=== PATIENT | female | born 1945 | race Caucasian/White ===

== ENCOUNTER → 2017-11-18 11:08 | Emergency (ER) | payer MEDICARE ==
--- NOTE | 2017-11-18 11:41 | ED ---
GI/ HPI - HPI Summary HPI Summary: The pt is a 72 y/o female [place] [facility] [place]/o rectal bleeding since today morning. She notes melena (with bright red blood), lower abdominal pain, tinnitus, and a feeling of fogginess secondary to chronic hypertension but denies fever, dizziness, CP, N/V/D, SI/HI. The sx are similar to those she had 4 weeks ago. She takes Vitamin C. - History of Current Complaint Chief Complaint: EDGeneral Time Seen by Provider: 11/18/17 11:25 Stated Complaint: BLOOD IN STOOL Hx Obtained From: Patient Onset/Duration: Started Hours Ago - 11/18/2017 morning, Still Present Pain Intensity: 0 Associated Signs and Symptoms: Positive: Negative - SI/HI, Bright Red Blood w/ Stool, Abdominal Pain, Melena, Other: - Depression. Negative: Dizziness, Nausea , Vomiting, Diarrhea, Fever, Chest Pain - Allergy/Home Medications Allergies/Adverse Reactions: Allergies Allergy/AdvReac Type Severity Reaction Status Date / Time No Known Allergies Allergy Verified 11/18/17 11:23 PMH/Surg Hx/FS Hx/Imm Hx Previously Healthy: No Endocrine/Hematology History: Denies: Hx Diabetes Cardiovascular History: Reports: Hx Hypertension Respiratory History: Denies: Hx Asthma Sensory History: Denies: Hx Deafness - Cancer History Hx Chemotherapy: No Hx Radiation Therapy: No - Surgical History Surgery Procedure, Year, and Place: c-sections Infectious Disease History: No Infectious Disease History: Denies: Traveled Outside the [place] in Last 30 Days - Family History Known Family History: Positive: Cardiac Disease, Hypertension, Diabetes, Other - Colon [place]-father - Social History Occupation: Employed Full-time Lives: With Family Alcohol Use: Daily Alcohol Amount: 2-3 light beers/day Substance Use Type: Reports: Marijuana Substance Use Comment - Amount & Last Used: THC daily-stated use is for depression Smoking Status (MU): Former Smoker Review of Systems Constitutional: Negative - Dizziness, Other - Positive: "fogginess" secondary to HTN Negative: Fever ENT: Other - Positive: Tinnitus Negative: Chest Pain Positive: Abdominal Pain - Lower abd , Other - Positive: Rectal bleeding. Negative: Vomiting, Diarrhea, Nausea Positive: Depressed, Other - Negative: SI/HI All Other Systems Reviewed And Are Negative: Yes Physical Exam - Summary Physical Exam Summary: Constitutional: Well-developed, Well-nourished, Alert. (-) Distressed Skin: Warm, Dry HENT: Normocephalic; Atraumatic Eyes: Conjunctiva normal Neck: Musculoskeletal ROM normal neck. (-) JVD, (-) Stridor, (-) Tracheal deviation Cardio: Rhythm regular, rate normal, Heart sounds normal; Intact distal pulses; The pedal pulses are 2+ and symmetric. Radial pulses are 2+ and symmetric. (-) Murmur Pulmonary/Chest wall: Effort normal. (-) Respiratory distress, (-) Wheezes, (-) Rales Abd: Soft, (-) epigastric tenderness, (-) Distension, (-) Guarding, (-) Rebound Rectal exam: Negative fro jillian blood Musculoskeletal: (-) Edema Lymph: (-) Cervical adenopathy Neuro: Alert, Oriented x3 Psych: Mood and affect Normal Triage Information Reviewed: Yes Vital Signs On Initial Exam: Initial Vitals Temp Pulse Resp BP Pulse Ox 98.3 F 70 18 130/82 100 11/18/17 11:19 11/18/17 11:19 11/18/17 11:19 11/18/17 11:19 11/18/17 11:19 Vital Signs Reviewed: Yes Diagnostics - Vital Signs Vital Signs Temp Pulse Resp BP Pulse Ox 11/18/17 11:19 98.3 F 70 18 130/82 100 - Laboratory Result Diagrams: 11/18/17 16:57 11/18/17 11:59 Lab Statement: Any lab studies that have been ordered have been reviewed, and results considered in the medical decision making process. - EKG 11:42 Cardiac Rate: NL - 65 bpm EKG Rhythm: Sinus Rhythm Re-Evaluation - Re-Evaluation First Eval Re-Evaluation Time: 14:35 Comment: The pt reports a non-bleeding external hemorrhoid. She reports lower abdominal "fullness". GIGU Course/Dx - Course Course Of Treatment: A 72 year-old F presents to the ED with a CC of rectal bleeding since today morning. She notes melena (with bright red blood), lower abdominal pain, tinnitus, and a feeling of fogginess secondary to chronic hypertension but denies fever, dizziness, CP, N/V/D, SI/HI. The sx are similar to those she had 4 weeks ago. A physical exam and EKG are both unremarkable. A rectal exam is negative for jillian blood. I discussed the care of the pt with Dr. Parrish Ruiz MD who agreed tosee the pt in the ED.The pt got evaluated by a road freight brake coupler and hospitalist in the ED. They recommended discharging the pt. who has an upcoming colonoscopy in Nov with possibility of moving it up if needed. Patient will be discharged with a final Dx of rectal bleeding. The pt is agreeable with this plan. Allergies noted. - Diagnoses Provider Diagnoses: Rectal bleeding - Physician Notifications Discussed Care Of Patient With: Sandy Ruiz - Hospitalist Time Discussed With Above Provider: 14:15 Instructed by Provider To: Admit As Inpatient Discharge - Sign-Out/Discharge Documenting (check all that apply): Patient Departure - DC - Discharge Plan Condition: Improved Disposition: HOME Patient Education Materials: Rectal Bleeding (ED) Referrals: Brenda Raza MD [Primary Care Provider] - 2 Days Additional Instructions: RETURN TO THE EMERGENCY DEPARTMENT FOR CHANGING OR WORSENING SYMPTOMS - Attestation Statements Document Initiated by Scribe: Yes Documenting Scribe: Zakiya Singh Provider For Whom Scribe is Documenting (Include Credential): Dr. Arthur Posadas MD Scribe Attestation: Zakiya Boateng , scribed for Dr. Arthur Posadas MD on 11/18/17 at 1754.
[2017-11-18 12:14] LABS: ABS Basophils 0.1 10^3/ul (0-0.2); ABS Eosinophils 0.3 10^3/ul (0-0.6); ABS Lymphocytes 2.7 10^3/ul (1.0-4.8); ABS Monocytes 0.9 10^3/ul (0-0.8); ABS Nucleated RBC 0 10^3/ul; Eosinophil % 2.9 % (0-6); Hematocrit 43 % (35-47); Hemoglobin 14.3 g/dl (12.0-16.0); Lymphocyte % 27.2 % (25-47); Mean Corpuscular HGB Conc 33 g/dl (31-36); Mean Corpuscular Hemoglobin 31 pg (27-31); Mean Corpuscular Volume 92 fL (80-97); Mean Platelet Volume 7.8 um3 (7.4-10.4); Nucleated Red Blood Cells % 0.1; Platelet Count 342 10^3/ul (150-450); Red Blood Count 4.67 10^6/ul (4.00-5.40); Red Cell Distribution Width 13 % (10.5-15)
[2017-11-18 12:32] LABS: EGFR Non-African American 89.9 (>60)
[2017-11-18 15:20] LABS: Urine Appearance Clear; Urine Blood Negative (Negative); Urine Color Straw; Urine Ketones Negative (Negative); Urine Protein Negative (Negative); Urine Specific Gravity 1.002 (1.010-1.030); Urine Urobilinogen Negative (Negative)
[2017-11-18 16:02] VITALS: BP 178/91
[2017-11-18 17:11] LABS: Hematocrit 44 % (35-47); Mean Corpuscular HGB Conc 34 g/dl (31-36); Mean Corpuscular Hemoglobin 32 pg (27-31); Mean Corpuscular Volume 93 fL (80-97); Platelet Count 359 10^3/ul (150-450); Red Cell Distribution Width 13 % (10.5-15); White Blood Count 10.9 10^3/ul (3.5-10.8)
--- NOTE | 2017-11-18 22:23 | CONS ---
CC: Dr. Thompson * CONSULTATION REPORT: DATE OF CONSULT: 11/18/17 - EMERGENCY DEPT PATIENT OF: Dr. Arthur Posadas from the emergency department. CONSULTED TO: Dr. Sandy Ruiz from hospitalist services. PRIMARY CARE PHYSICIAN: Dr. Linda Overton. REASON FOR CONSULT: Lower GI bleed. HISTORY OF PRESENT ILLNESS: Ms. Bower is a 72-year-old female, who presented to the emergency room earlier today with complaints of 1 episode of bright red blood per rectum earlier this morning. The patient had similar episode about a month ago that eventually resolved and she was seen by her primary care physician and had referral to a corporate driver. She said that she had her appointment at the GI doctor and she is already scheduled for a colonoscopy on 12/17/17. She described being in her usual state of health. She has a known diagnosis of hypertension for which she said to me that she was supposed to take blood pressure medicine; however, she has not been taking it and she failed to give me any further information about the name of the drug or how often she takes it. She got up this morning and had a bowel movement, described red blood per rectum in the toilet bowl and on the paper after wiping. She has also been feeling a little headache with tinnitus, she thinks because of her hypertension, but denied any weakness, chest pain, shortness of breath, or any other associated symptoms. She also described some abdominal fullness, but denies any significant abdominal pain, nausea, vomiting, or changes in her bowel habits. The patient had laboratory workup in the emergency room that revealed stable hemoglobin and hematocrit of 14.3 and 43 respectively. Her chemistry panel was essentially unremarkable and her urinalysis was clean as well. We were asked to see the patient to consider consultation, possible admission. I did touch base with Dr. Thompson from gastroenterology department, described the case to her, and she recommended the patient can likely go home if no further bleeding is noted. Upon asking the patient the question regarding doing a colonoscopy as scheduled next month, she said that she has been very busy and she would like to get it done sooner than that. GI recommended that the patient would call the office if she experience any recurrent rectal bleed or seek emergency department help if the bleeding becomes worse. Other than that, she seemed to be hemodynamically stable and can go home and follow up with primary care physician in the next few days. PAST MEDICAL HISTORY: Significant for hypertension, for which she has not been taking any medication. She takes herbal supplements and multiple vitamins. She also has a history of anxiety. PAST SURGICAL HISTORY: Significant for C-sections x2. CURRENT MEDICATIONS: Her medications at home include: 1. Neha-C supplement 3 tablets p.o. daily. 2. Biotin 10 mg p.o. daily. 3. Coenzyme Q10 300 mg p.o. daily. 4. Melatonin 6 mg p.o. q.h.s. p.r.n. for insomnia. 5. Nicotine gum 2 mg p.o. q.2 hours p.r.n. for craving. 6. Vitamin B complex 1 tablet p.o. daily. ALLERGIES: She has no known drug allergies. FAMILY HISTORY: Reviewed and noncontributory. SOCIAL HISTORY: The patient lives with her . She is retired. She is a former smoker, quit about a year ago and drinks few beers a day. She denies illicit drug use and listed her as healthcare proxy and she wishes to be a full code. REVIEW OF SYSTEMS: See HPI. Otherwise, 14-point review of systems was examined and they were essentially negative. PHYSICAL EXAM: General: She is a pleasant healthy-appearing, upper middle- aged female, in no acute distress or discomfort at the time of consultation. Vitals reveal temperature of 98.2, pulse of 63, blood pressure of 178/91, respirations of 16 with O2 sat of 99% on room air. HEENT: Head is normocephalic, atraumatic. Sclerae anicteric. PERRLA. EOMs intact. Oropharynx is pink and moist. Neck: Supple. Trachea midline. No cervical adenopathy, thyromegaly, or JVD. Lungs: Clear to auscultation bilaterally. Heart: Regular rate and rhythm. Normal S1 and S2 without rubs, murmurs, or gallops. Back: With normal curvature. No CVA tenderness. Breasts: Exam deferred at this time. Abdomen: Soft, nontender, and nondistended. Bowel sounds were active in all quadrants. There are no hernias, masses, or hepatosplenomegaly. Extremities: Without cyanosis, clubbing, or edema. Neurologic: She is awake, alert, and oriented. Handgrip was equal bilaterally. Sensation was intact throughout. Rectal Exam: Deferred at this time. However, rectal exam and occult stools for blood were done by the ED provider and they were negative. DIAGNOSTIC STUDIES/LAB DATA: CBC with white count of 10,000, hemoglobin of 14.3 , hematocrit of 43, and platelets of 342. Chemistry with sodium of 133, potassium 3.5, chloride 101, CO2 of 26, BUN of 11, and creatinine of 0.65. LFTs within normal limits. Troponin 0. C-reactive protein less than 1. Urinalysis within normal limits. IMPRESSION: A 72-year-old female with intermittent episodes of bright red blood per rectum, who appeared to be hemodynamically stable with no evidence of any recurrent rectal bleed since visit to the emergency room. ASSESSMENT AND PLAN: The patient is already scheduled for a screening colonoscopy next month. I did touch base with Dr. Thompson regarding recommendation. Again, the patient appears to be hemodynamically stable and she is on no blood thinners or antiplatelet agents. She recommended the patient can go home, take her diet as tolerated, and follow up with primary care physician regarding her elevated blood pressure as well and she was encouraged to take her medication and follow up with Dr. Overton later this week. I advised her that if she does experience another episode of rectal bleed, to call the GI office to move up her colonoscopy hopefully to be done in the next couple of days. She is also advised to return to the emergency room if she experienced frequent rectal bleeding or worsening symptoms. In that case, she might need to be admitted, do a bowel prep during this admission and proceed with colonoscopy. She seems to be comfortable with that decision and I did discuss the case with Dr. Posadas regarding discharge to home. He will repeat her CBC and likely to be discharged home and follow up with primary care physician. Thank you for this consultation. Again, all plans were discussed with Dr. John Christian, who is in agreement and the patient was advised to call the GI office if any worsening symptoms in attempt to move her colonoscopy sooner if seem indicated. RAEGAN FONG [id number]/[facility] #: [id number] GARO
== END | disposition home or self-care (01) ==
LOC: ED 11:08
DX: K62.5 Hemorrhage of anus and rectum (principal); R10.30 Lower abdominal pain, unspecified; F32.9 Major depressive disorder, single episode, unspecified
CPT/HCPCS: 36415; 80053; 81003; 82272; 83605; 83690; 84484; 85025; 85027; 86140; 93005; 99284

== ENCOUNTER 2018-03-16 07:12 | Emergency (ER) | payer MEDICARE ==
--- NOTE | 2018-03-16 07:38 | ED ---
GI/ HPI - HPI Summary HPI Summary: Pt is a 73 y/o female who presents to the ED c/o N/V. She states she began to feel ill 3 days ago, c/o weakness, shakiness, and decreased appetite. Last night she began to feel nauseated, and vomited several times this morning. She also has been coughing up clear liquid this morning. Pt denies any abdominal pain, CP, body aches, fever, or DAY. She denies getting this seasons flu shot, because flu shots make her get deathly ill. Pt drinks 1-2 beers daily, and uses marijuana. - History of Current Complaint Chief Complaint: EDNauseaVomitDiarrh Time Seen by Provider: 03/16/18 07:29 Stated Complaint: VOMITING Hx Obtained From: Patient Onset/Duration: Started Days Ago - 3, Worse Since Timing: Constant Pain Intensity: 0 Location of Pain: Diffuse Associated Signs and Symptoms: Positive: Weakness, Nausea, Vomiting. Negative: Abdominal Pain, Chest Pain Aggravating Factor(s): Nothing Alleviating Factor(s): Nothing - Allergy/Home Medications Allergies/Adverse Reactions: Allergies Allergy/AdvReac Type Severity Reaction Status Date / Time No Known Allergies Allergy Verified 03/17/18 03:54 PMH/Surg Hx/FS Hx/Imm Hx Endocrine/Hematology History: Denies: Hx Diabetes Cardiovascular History: Reports: Hx Hypertension Respiratory History: Denies: Hx Asthma Sensory History: Denies: Hx Deafness Psychiatric History: Reports: Hx Depression - Cancer History Hx Chemotherapy: No Hx Radiation Therapy: No - Surgical History Surgery Procedure, Year, and Place: c-sections Infectious Disease History: No Infectious Disease History: Denies: Traveled Outside the [place] in Last 30 Days - Family History Known Family History: Positive: Cardiac Disease, Hypertension, Diabetes, Other - Colon CA-father - Social History Alcohol Use: Daily Alcohol Amount: 2-3 light beers/day Hx Substance Use: Yes Substance Use Type: Reports: Marijuana Substance Use Comment - Amount & Last Used: THC daily-stated use is for depression Hx Tobacco Use: Yes Smoking Status (MU): Former Smoker Review of Systems Positive: Other - shakiness, generalized weakness NEGATIVE: body aches. Negative: Fever Positive: Cough - clear liquid Positive: Vomiting, Nausea, Other - Decreased appetite. Negative: Abdominal Pain Negative: Headache All Other Systems Reviewed And Are Negative: Yes Physical Exam - Summary Physical Exam Summary: GENERAL: Patient is a well-developed and nourished F who is lying comfortable in the stretcher. Patient is not in any acute respiratory distress. HEAD AND FACE: Normocephalic EYES: PERRLA, EOMI x 2. EARS: Hearing grossly intact. MOUTH: Oropharynx within normal limits. NECK: Supple, trachea is midline, no adenopathy, no JVD, no carotid bruit. CHEST: Symmetric, no tenderness at palpation LUNGS: Clear to auscultation bilaterally. No wheezing or crackles. CVS: Regular rate and rhythm, S1 and S2 present, no murmurs or gallops appreciated. ABDOMEN: Soft, non-tender. Bowel sounds are normal. No abdominal abnormal pulsations. EXTREMITIES: Full ROM in all major joints, no edema, no cyanosis or clubbing. NEURO: Alert and oriented x 3. No acute neurological deficits. Speech is normal and follows commands. SKIN: Dry and warm Triage Information Reviewed: Yes Vital Signs On Initial Exam: Initial Vitals Temp Pulse Resp BP Pulse Ox 98.1 F 78 20 151/97 100 03/16/18 07:15 03/16/18 07:15 03/16/18 07:15 03/16/18 07:15 03/16/18 07:15 Vital Signs Reviewed: Yes Diagnostics - Vital Signs Vital Signs Temp Pulse Resp BP Pulse Ox 03/16/18 07:15 98.1 F 78 20 151/97 100 - Laboratory Result Diagrams: 03/16/18 08:00 03/16/18 08:00 Lab Statement: Any lab studies that have been ordered have been reviewed, and results considered in the medical decision making process. - Radiology CXR Radiology Interpretation Completed By: Radiologist Summary of Radiographic Findings: NO ACTIVE CARDIOPULMONARY DISEASE. ED physician reviewed radiology report. - EKG 7:50 Cardiac Rate: NL - 74 bpm EKG Rhythm: Sinus Rhythm Summary of EKG Findings: Prolonged QT interval Re-Evaluation - Re-Evaluation First Eval Re-Evaluation Time: 09:35 Change: Unchanged Comment: Pt is unchanged. GIGU Course/Dx - Course Course Of Treatment: Pt is a 73 y/o female who presents to the ED c/o N/V. She states she began to feel ill 3 days ago, c/o weakness, shakiness, and decreased appetite. Workup was unremarkable. A CXR was negative. An EKG revealed a rate of 74 bpm and prolonged QT interval. Final dx is viral syndrome, and the patient will be discharged. I discussed results with patient and she reports feeling better. She is hemodynamically stable and safe for discharge. Strict return precautions given and she will otherwise follow up with her PCP. - Diagnoses Provider Diagnoses: Viral syndrome Discharge - Sign-Out/Discharge Documenting (check all that apply): Patient Departure - Discharge Patient Received Moderate/Deep Sedation with Procedure: No - Discharge Plan Condition: Stable Disposition: HOME Patient Education Materials: Viral Syndrome (ED) Referrals: Brenda Raza MD [Primary Care Provider] - 2 Days Additional Instructions: Follow up with your primary care physician in 1-3 days. RETURN TO THE EMERGENCY DEPARTMENT FOR CHANGING OR WORSENING SYMPTOMS. - Billing Disposition and Condition Condition: STABLE Disposition: Home - Attestation Statements Document Initiated by Domitila: Yes Documenting Scribe: Ashley Cutler Provider For Whom Scribe is Documenting (Include Credential): Car Sahu MD Scribe Attestation: IAshley, scribed for Car Sahu MD on 03/17/18 at 1805. Scribe Documentation Reviewed: Yes Provider Attestation: The documentation as recorded by the Ashley pendleton accurately reflects the service I personally performed and the decisions made by , Car Sahu MD Status of Scribe Document: Viewed
[2018-03-16] MEDS ORDERED: NS 0.9% 1000 ML** 1,000 ML IV ONE (07:42)
[2018-03-16] MEDS ORDERED: Ondansetron INJ* 2 MG/ML VIAL IV ONE (07:43)
[2018-03-16 08:16] LABS: ABS Basophils 0.1 10^3/ul (0-0.2); ABS Eosinophils 0.1 10^3/ul (0-0.6); ABS Lymphocytes 1.5 10^3/ul (1.0-4.8); ABS Monocytes 0.7 10^3/ul (0-0.8); ABS Neutrophils 7.5 10^3/ul (1.5-7.7); ABS Nucleated RBC 0 10^3/ul; Eosinophil % 0.6 %; Hematocrit 43 % (35-47); Hemoglobin 14.8 g/dl (12.0-16.0); Mean Corpuscular HGB Conc 34 g/dl (31-36); Mean Corpuscular Hemoglobin 32 pg (27-31); Mean Corpuscular Volume 93 fL (80-97); Mean Platelet Volume 8.2 fL (7.4-10.4); Nucleated Red Blood Cells % 0; Platelet Count 355 10^3/ul (150-450); Red Blood Count 4.64 10^6/ul (4.00-5.40); Red Cell Distribution Width 13 % (10.5-15); White Blood Count 9.9 10^3/ul (3.5-10.8)
[2018-03-16 08:18] LABS: Influenza A Molecular NEGATIVE (Negative); Influenza B Molecular NEGATIVE (Negative)
[2018-03-16 08:39] LABS: Albumin 4.5 g/dL (3.2-5.2); Albumin/Globulin Ratio 2.3 (1-3); BUN/Creatinine Ratio 18.1 (8-20); Calcium 9.8 mg/dL (8.6-10.3); EGFR African American 81.8 (>60); EGFR Non-African American 67.6 (>60); Potassium 3.5 mmol/L (3.5-5.0); Total Bilirubin 0.9 mg/dL (0.2-1.0); Total Protein 6.5 g/dL (6.4-8.9)
[2018-03-16 09:33] LABS: Urine Appearance Cloudy; Urine Bilirubin Negative (Negative); Urine Blood Negative (Negative); Urine Color Yellow; Urine Glucose Negative (Negative); Urine Ketones 1+ (Negative); Urine Nitrite Negative (Negative); Urine Protein Negative (Negative); Urine Specific Gravity 1.009 (1.010-1.030); Urine Urobilinogen Negative (Negative)
[2018-03-16] MEDS ORDERED: Metoclopramide IV* 5 MG/ML 2 ML VIAL IV ONE (10:45)
[2018-03-16 10:58] VITALS: BP 175/90
== END 2018-03-16 10:58 | disposition home or self-care (01) ==
LOC: ED 07:12
DX: B34.9 Viral infection, unspecified (principal); Z87.891 Personal history of nicotine dependence
CPT/HCPCS: 36415; 71045; 80053; 81003; 83605; 83690; 83735; 84484; 85025; 93005; 96374; 96375; 99284; J2405; J2765

== ENCOUNTER 2018-03-17 03:45 | Emergency (ER) | payer MEDICARE ==
[2018-03-17] MEDS ORDERED: Ketorolac INJ* 15 MG/ML 1 ML VIAL IV PUSH ONE (04:21)
[2018-03-17] MEDS ORDERED: NS 0.9% 1000 ML** 2,000 ML IV ONE (04:21)
[2018-03-17] MEDS ORDERED: LORazepam INJ* 2 MG/ML 1 ML VIAL IV PUSH ONE (04:22)
[2018-03-17] MEDS ORDERED: Metoclopramide IV* 5 MG/ML 2 ML VIAL IV SLOW PU ONE (04:22)
--- NOTE | 2018-03-17 04:22 | ED ---
Complex/Multi-Sys Presentation - HPI Summary HPI Summary: Pt is a 73 y/o F presenting to the ED with a chief complaint of nausea and vomiting. She reports chills, vomiting, and nausea. Pt denies pain. - History Of Current Complaint Chief Complaint: EDGeneral Time Seen by Provider: 03/17/18 04:13 Hx Obtained From: Patient Onset/Duration: Gradual Onset, Lasting Days, Still Present Timing: Constant Severity Currently: Moderate Severity Initially: Moderate Location: Negative Associated Signs And Symptoms: Positive: Nausea, Vomiting - Allergies/Home Medications Allergies/Adverse Reactions: Allergies Allergy/AdvReac Type Severity Reaction Status Date / Time No Known Allergies Allergy Verified 03/17/18 03:54 PMH/Surg Hx/FS Hx/Imm Hx Previously Healthy: Yes Endocrine/Hematology History: Denies: Hx Diabetes Cardiovascular History: Reports: Hx Hypertension Respiratory History: Denies: Hx Asthma Sensory History: Denies: Hx Deafness Psychiatric History: Reports: Hx Depression - Cancer History Hx Chemotherapy: No Hx Radiation Therapy: No - Surgical History Surgery Procedure, Year, and Place: c-sections Infectious Disease History: No Infectious Disease History: Denies: Traveled Outside the [place] in Last 30 Days - Family History Known Family History: Positive: Cardiac Disease, Hypertension, Diabetes, Other - Colon [place]-father - Social History Alcohol Use: Daily Alcohol Amount: 2-3 light beers/day Hx Substance Use: Yes Substance Use Type: Reports: Marijuana Substance Use Comment - Amount & Last Used: THC daily-stated use is for depression Hx Tobacco Use: Yes Smoking Status (MU): Former Smoker Review of Systems Positive: Chills. Negative: Fever Positive: Vomiting, Nausea. Negative: Abdominal Pain Positive: Anxious All Other Systems Reviewed And Are Negative: Yes Physical Exam - Summary Physical Exam Summary: VITAL SIGNS: Reviewed. GENERAL: Patient is a well-developed and nourished female who is lying on the bed. She is anxious and shaking. HEAD AND FACE: No signs of trauma. No ecchymosis, hematomas or skull depressions. No sinus tenderness. EYES: PERRLA, EOMI x 2, No injected conjunctiva, no nystagmus. EARS: Hearing grossly intact. Ear canals and tympanic membranes are within normal limits. MOUTH: Oropharynx within normal limits. NECK: Supple, trachea is midline, no adenopathy, no JVD, no carotid bruit, no c- spine tenderness, neck with full ROM. CHEST: Symmetric, no tenderness at palpation LUNGS: Clear to auscultation bilaterally. No wheezing or crackles. CVS: Regular rate and rhythm, S1 and S2 present, no murmurs or gallops appreciated. ABDOMEN: Soft, non-tender. No signs of distention. No rebound no guarding, and no masses palpated. Bowel sounds are normal. EXTREMITIES: FROM in all major joints, no edema, no cyanosis or clubbing. NEURO: Alert and oriented x 3. No acute neurological deficits. Speech is normal and follows commands. SKIN: Dry and warm Triage Information Reviewed: Yes Vital Signs On Initial Exam: Initial Vitals Temp Pulse Resp BP Pulse Ox 97.8 F 78 22 147/76 98 03/17/18 03:45 03/17/18 03:45 03/17/18 03:45 03/17/18 03:45 03/17/18 03:45 Vital Signs Reviewed: Yes Diagnostics - Vital Signs Vital Signs Temp Pulse Resp BP Pulse Ox 03/17/18 03:45 97.8 F 78 22 147/76 98 - Laboratory Result Diagrams: 03/17/18 04:40 03/17/18 04:40 Lab Statement: Any lab studies that have been ordered have been reviewed, and results considered in the medical decision making process. Re-Evaluation - Re-Evaluation First Eval Re-Evaluation Time: 09:45 Change: Improved Comment: Pt feels much better and tolerated PO intake. Complex Multi-Symp Course/Dx Course Of Treatment: Pt was here on 03/16/2017 with the same sx as of this visit. She is reporting nausea, vomiting, and chills, but worse since last visit. Pt denies pain and is presently anxious and shaking. As of 652, pt has not vomited. She is stable but will be signed out to Dr. Sahu pending re-eval and pending pt's ability to have PO intake. - Diagnoses Provider Diagnoses: Vomiting Discharge - Sign-Out/Discharge Documenting (check all that apply): Patient Departure, Sign-Out Patient Signing out patient TO: Car Sahu Patient Received Moderate/Deep Sedation with Procedure: No - Discharge Plan Condition: Stable Disposition: HOME Patient Education Materials: Acute Nausea and Vomiting (ED) Referrals: Brenda Raza MD [Primary Care Provider] - (1-3 days) Additional Instructions: Follow up with your primary care physician in 1-3 days. RETURN TO THE EMERGENCY DEPARTMENT FOR CHANGING OR WORSENING SYMPTOMS. - Billing Disposition and Condition Condition: STABLE Disposition: Home - Attestation Statements Document Initiated by Domitila: Yes Documenting Scribe: Belgica Young Provider For Whom Domitila is Documenting (Include Credential): Lisandra Victor MD. Scribe Attestation: Belgica Boateng, mitcheled for Lisandra Victor MD. on 03/18/18 at 0548. Scribe Documentation Reviewed: Yes Provider Attestation: The documentation as recorded by the Belgica pendleton accurately reflects the service I personally performed and the decisions made by Poli gonzalez MD. Status of Scribe Document: Viewed
[2018-03-17 04:50] LABS: ABS Basophils 0.1 10^3/ul (0-0.2); ABS Eosinophils 0 10^3/ul (0-0.6); ABS Lymphocytes 2.6 10^3/ul (1.0-4.8); ABS Neutrophils 7.7 10^3/ul (1.5-7.7); ABS Nucleated RBC 0 10^3/ul; Eosinophil % 0.2 %; Hematocrit 45 % (35-47); Hemoglobin 15.4 g/dl (12.0-16.0); Mean Corpuscular HGB Conc 34 g/dl (31-36); Mean Corpuscular Hemoglobin 32 pg (27-31); Mean Corpuscular Volume 94 fL (80-97); Mean Platelet Volume 8.1 fL (7.4-10.4); Nucleated Red Blood Cells % 0; Platelet Count 354 10^3/ul (150-450); Red Blood Count 4.81 10^6/ul (4.00-5.40); Red Cell Distribution Width 13 % (10.5-15); White Blood Count 11.4 10^3/ul (3.5-10.8)
[2018-03-17 04:57] LABS: Activated Partial Thrombo Time 29.3 seconds (26.0-36.3); INR 0.98 (0.77-1.02)
[2018-03-17 05:06] LABS: ALT 16 U/L (7-52); AST 20 U/L (13-39); Albumin 4.8 g/dL (3.2-5.2); Albumin/Globulin Ratio 2.5 (1-3); Alkaline Phosphatase 60 U/L (34-104); Amylase 40 U/L (29-103); Anion Gap 11 mmol/L (2-11); BUN/Creatinine Ratio 14.5 (8-20); Blood Urea Nitrogen 11 mg/dL (6-24); C Reactive Protein < 1.00 mg/L (<8.01); CO2 Carbon Dioxide 22 mmol/L (22-32); Calcium 9.2 mg/dL (8.6-10.3); Chloride 96 mmol/L (101-111); EGFR African American 90.5 (>60); EGFR Non-African American 74.8 (>60); Globulin 1.9 g/dL (2-4); Glucose 106 mg/dL (70-100); Magnesium 1.8 mg/dL (1.9-2.7); Potassium 3.1 mmol/L (3.5-5.0); Sodium 129 mmol/L (135-145); Total Protein 6.7 g/dL (6.4-8.9)
[2018-03-17] MEDS ORDERED: Potassium Chloride LIQUID* 20 MEQ PACKET PO ONE (05:24)
[2018-03-17 06:09] LABS: Urine Appearance Clear; Urine Bilirubin Negative (Negative); Urine Blood Negative (Negative); Urine Color Colorless; Urine Glucose Negative (Negative); Urine Ketones Negative (Negative); Urine Nitrite Negative (Negative); Urine Protein Negative (Negative); Urine Specific Gravity 1.002 (1.010-1.030); Urine Urobilinogen Negative (Negative)
--- NOTE | 2018-03-17 07:26 | ED ---
Progress - Progress Note Progress Note: Receiving sign out from Dr. Victor, pending ability to tolerate PO intake due to her N/V. Pt is discharged with a final dx of vomiting. Re-Evaluation - Re-Evaluation First Eval Re-Evaluation Time: 09:45 Change: Improved Comment: Pt feels much better and tolerated PO intake. Course/Dx - Course Course Of Treatment: Pt is a 73 y/o female who presents to the ED c/o N/V. Received sign out from Dr. Victor, pending tolerance of PO intake. Pt is now able to tolerate PO and feels much better. She is discharged with a final dx of vomiting. I discussed results with patient and she reports feeling better. She is hemodynamically stable and safe for discharge. Strict return precautions given and she will otherwise follow up with her PCP. - Diagnoses Provider Diagnoses: Vomiting Discharge - Sign-Out/Discharge Documenting (check all that apply): Patient Departure - Discharge, Receiving Sign-Out Receiving patient FROM: Lisandra Victor Patient Received Moderate/Deep Sedation with Procedure: No - Discharge Plan Condition: Stable Disposition: HOME Patient Education Materials: Acute Nausea and Vomiting (ED) Referrals: Brenda Raza MD [Primary Care Provider] - (1-3 days) Additional Instructions: Follow up with your primary care physician in 1-3 days. RETURN TO THE EMERGENCY DEPARTMENT FOR CHANGING OR WORSENING SYMPTOMS. - Billing Disposition and Condition Condition: STABLE Disposition: Home - Attestation Statements Document Initiated by Kiaibmonisha: Yes Documenting Scribe: Ashley Cutler Provider For Whom Scribe is Documenting (Include Credential): Car Sahu MD Scribe Attestation: IAshley, scribed for Car Sahu MD on 03/17/18 at 1804. Scribe Documentation Reviewed: Yes Provider Attestation: The documentation as recorded by the Ashley pendleton accurately reflects the service I personally performed and the decisions made by me, Car Sahu MD Status of Scribe Document: Viewed
[2018-03-17 09:54] VITALS: BP 139/79
== END 2018-03-17 09:56 | disposition home or self-care (01) ==
LOC: ED 03:45
DX: R11.2 Nausea with vomiting, unspecified (principal); R68.83 Chills (without fever); F41.9 Anxiety disorder, unspecified; Z87.891 Personal history of nicotine dependence
CPT/HCPCS: 36415; 80053; 81003; 82150; 83690; 83735; 85025; 85610; 85730; 86140; 96361; 96374; 96375; 99283; A9270-GY; J1885; J2060; J2765

== ENCOUNTER 2020-07-30 17:49 | Observation (INO) ==
[2020-07-30] MEDS ORDERED: Thiamine 100 MG/ML 2 ml VIAL 100 MG, Folic Acid IV 1 MG, Multiple Vitamin IV ADULT 10 M... IV ONE (20:30)
[2020-07-30 20:38] LABS: ABS Basophils 0.1 10^3/ul (0-0.2); ABS Eosinophils 0.2 10^3/ul (0-0.6); ABS Lymphocytes 3.7 10^3/ul (1.0-4.8); ABS Monocytes 0.9 10^3/ul (0-0.8); ABS Neutrophils 5.5 10^3/ul (1.5-7.7); Eosinophil % 2.1 %; Hematocrit 40 % (35-47); Hemoglobin 13.9 g/dL (12.0-16.0); Lymphocyte % 35.8 %; Mean Corpuscular HGB Conc 35 g/dL (31-36); Mean Corpuscular Hemoglobin 33 pg (27-31); Mean Corpuscular Volume 93 fL (80-97); Mean Platelet Volume 7.5 fL (7.4-10.4); Platelet Count 374 10^3/uL (150-450); Red Blood Count 4.27 10^6 /uL (3.70-4.87); Red Cell Distribution Width 12 % (10-15); White Blood Count 10.4 10^3/uL (3.5-10.8)
[2020-07-30 20:51] LABS: Urine Appearance Cloudy; Urine Bilirubin Negative (Negative); Urine Blood Negative (Negative); Urine Color Straw; Urine Glucose Negative (Negative); Urine Ketones Trace (Negative); Urine Nitrite Negative (Negative); Urine Protein Negative (Negative); Urine Specific Gravity 1.005 (1.002-1.030); Urine Urobilinogen Negative (Negative)
[2020-07-30 20:54] LABS: Urine Bacteria Absent (Absent); Urine Red Blood Cell 1+(3-5/hpf) (Absent); Urine Squamous Epithelial Cell Present (Absent); Urine White Blood Cell 2+(11-20/hpf) (Absent)
[2020-07-30 20:55] LABS: ALT 13 U/L (7-52); AST 17 U/L (13-39); Albumin 4.3 g/dL (3.2-5.2); Albumin/Globulin Ratio 2.3 (1-3); Alkaline Phosphatase 74 U/L (35-149); Anion Gap 8 mmol/L (2-11); Blood Urea Nitrogen 17 mg/dL (6-24); CO2 Carbon Dioxide 22 mmol/L (22-32); Calcium 8.9 mg/dL (8.6-10.3); Chloride 96 mmol/L (101-111); EGFR African American 84.8 (>60); EGFR Non-African American 70.1 (>60); Globulin 1.9 g/dL (2-4); Glucose 120 mg/dL (70-100); Potassium 3.4 mmol/L (3.5-5.0); Sodium 126 mmol/L (135-145); Total Protein 6.2 g/dL (6.4-8.9)
[2020-07-30 21:21] LABS: Urine Benzodiazepine Screen None Detected (None Detect); Urine Cannabinoids Screen None Detected (None Detect); Urine Opiates Screen None Detected (None Detect)
[2020-07-30 21:21] LABS: Acetaminophen < 15 mcg/mL; Alcohol, S < 10 mg/dL (<10); Salicylate < 2.50 mg/dL (<30)
[2020-07-30 21:26] LABS: TSH Ultra Thyroid Stim Horm 2.91 mcIU/mL (0.34-5.60)
[2020-07-31] MEDS ORDERED: Thiamine 100 MG/ML 2 ml VIAL (200 mg) IM ONE (03:25)
[2020-07-31] MEDS ORDERED: Nicotine GUM 2MG FRUIT FLAVOR PO PRN (03:26)
[2020-07-31 04:30] LABS: Magnesium 2.1 mg/dL (1.9-2.7)
[2020-07-31] MEDS ORDERED: Potassium Chloride LIQUID 20 MEQ/15 ML LIQUID PO ONE (05:21)
[2020-07-31 07:03] LABS: ABS Basophils 0.1 10^3/ul (0-0.2); ABS Eosinophils 0.2 10^3/ul (0-0.6); ABS Lymphocytes 2.1 10^3/ul (1.0-4.8); ABS Monocytes 0.7 10^3/ul (0-0.8); ABS Neutrophils 3.5 10^3/ul (1.5-7.7); Eosinophil % 3.5 %; Hematocrit 41 % (35-47); Hemoglobin 14.6 g/dL (12.0-16.0); Lymphocyte % 31.6 %; Mean Corpuscular HGB Conc 36 g/dL (31-36); Mean Corpuscular Hemoglobin 33 pg (27-31); Mean Corpuscular Volume 94 fL (80-97); Mean Platelet Volume 7.6 fL (7.4-10.4); Platelet Count 359 10^3/uL (150-450); Red Blood Count 4.39 10^6 /uL (3.70-4.87); Red Cell Distribution Width 13 % (10-15); White Blood Count 6.8 10^3/uL (3.5-10.8)
[2020-07-31 07:38] LABS: Blood Urea Nitrogen 14 mg/dL (6-24); CO2 Carbon Dioxide 24 mmol/L (22-32); Calcium 8.9 mg/dL (8.6-10.3); Chloride 103 mmol/L (101-111); EGFR African American 88.7 (>60); EGFR Non-African American 73.3 (>60); Glucose 96 mg/dL (70-100); Sodium 132 mmol/L (135-145)
[2020-07-31] MEDS: Multivitamins/Minerals TAB PO SCH (08:32)
[2020-07-31] MEDS: Enoxaparin 40 MG/0.4 ML SYR SUBCUT SCH (08:32)
[2020-07-31 08:44] LABS: Anion Gap 5 mmol/L (2-11)
[2020-07-31] MEDS: Thiamine 100 MG/ML 2 ml VIAL 500 MG in NS 0.9% 250 ml 250 ML IV SCH (17:25)
[2020-08-01] MEDS: Thiamine 100 MG/ML 2 ml VIAL 500 MG in NS 0.9% 250 ml 250 ML IV SCH ×2 (01:11→09:31)
[2020-08-01 08:20] LABS: EGFR African American 80.2 (>60); EGFR Non-African American 66.3 (>60)
[2020-08-01] MEDS: Enoxaparin 40 MG/0.4 ML SYR SUBCUT SCH (09:30)
[2020-08-01] MEDS: Multivitamins/Minerals TAB PO SCH (09:30)
[2020-08-01 12:16] VITALS: BP 147/84
== END 2020-08-01 15:10 | disposition home or self-care (01) ==
LOC: ED 17:49 → MEDTELE 07-31 03:20 → INTOOBSV 07-31 03:20 → MEDTELE 07-31 08:11
PROVIDERS: ADMIT Hospitalist; ATTEND Pediatrics